=== PATIENT | female | born 1960 | race Caucasian/White ===

== ENCOUNTER → 2018-08-31 | Outpatient (REF) | LOC: ZLAB.WCH 17:21 | DX: Z01.89 Encounter for other specified special examinations (principal) ==

== ENCOUNTER → 2018-11-21 | Outpatient (CLI) | payer OTHER, MEDICARE | LOC: BHSO 09:14 | DX: F33.1 Major depressive disorder, recurrent, moderate (principal) ==

== ENCOUNTER → 2019-01-11 | Outpatient (CLI) | payer MEDICARE | LOC: COL.PUL 01-10 08:00 | DX: J45.20 Mild intermittent asthma, uncomplicated (principal); M06.9 Rheumatoid arthritis, unspecified; G47.30 Sleep apnea, unspecified ==

== ENCOUNTER → 2019-06-15 | Outpatient (CLI) | payer MEDICARE | LOC: MC.RAD 11:15 | DX: Z12.31 Encounter for screening mammogram for malignant neoplasm of breast (principal) ==

== ENCOUNTER 2020-11-05 06:35 | Observation (INO) | payer MEDICARE ==
[~2020-11-05] VITALS: Ht 167.6 cm; Wt 91.6 kg
[2020-11-05] VITALS (29 sets, daily range): BP systolic 79–138; BP diastolic 35–122; PULSE 75–109; TEMP 97.8–98.1
[~2020-11-05 06:35] MED LIST: BALANCE B-501 TA1 PO; BUSPAR DIVIDOSE15 MG PO; COZAAR 50MG50 MG/TAB PO; DESYREL 100MG100 MG PO; ELIQUIS 5MG PO; FLAXSEED OIL1000 MG PO; FLEXERIL 1010 MG/TAB PO; FOLIC ACID 11 MG/TA1 PO; METHOTREXA2.5 MG/TAB PO; PHENERGAN 25 TA25 MG PO; PLAQUENIL 200M200 MG PO; PREDNISONE10 MG PO; PRISTIQ100 MG PO; PROAIR HFA0.09 MG/AC IH; PROTONIX 40MG T40 MG PO; SINGULAIR 110 MG/TAB PO; TYLENOL 8 HR PO; ULTRAM 50MG TAB50 MG PO; VITAMIND3 5000 PO; ZYRTEC 10MG10 MG PO
[2020-11-05] MEDS ORDERED: CLARITIN 1010 MG/TAB PO (07:04)
--- NOTE | 2020-11-05 07:50 | NUR ---
PT BROUGHT TO EU 10 ON CART. PT UNABLE TO TRANSFER SO STAFF TRANSFERED PT TO BED. STATES PAIN IS LIKE SPASMS AND RATES THE PAIN AT 7-9/10. DR VALENTINE CALLED AND WE RECIEVED AND ORDER FOR FENTANYL 50 MCG, THIS WAS GIVEN AT 0829. PT HAD ELEVATED BP 138/122 0837 BP WAS RECHECKED 90/66 WHICH IS IN HER NORMAL RANGE. STATES PAIN IS BETTER AND RATES THE PAIN 4/10.
--- NOTE | 2020-11-05 08:30 | NUR ---
Dr. Schwartz called to report c/o rt upper chest pain and "spams." BP cuff changed to long regular cuff from large red cuff and repositioned on arm.
--- NOTE | 2020-11-05 10:26 | NUR ---
Dr. Schwartz in room to speak with pt.
--- NOTE | 2020-11-05 14:30 | NUR ---
Pain to rt upper chest wall improved, now rates at 2/10. Dressing to bx site remains clean, dry and intact. Pt continues on O2 by OH for comfort, with sats in high 90s.
--- NOTE | 2020-11-05 15:10 | NUR ---
Pt taken to rm 356 by wheelchair with personal belongings. Report was called to JUAN Benton who will take over cares. Pt has been resting comfortably, states that tylenol was very effective at reducing pain. Prior to getting out of bed pain was rated at 2/10. Some increase in pain to rt upper chest with getting out of bed and transferring to wheelchair, up to 6/10. Pt has continued to request O2 for comfort per NC, with sats in high 90s while on O2. Pt plans to discuss assistance with obtaining home O2 with hospiatlist staff during admission.
--- NOTE | 2020-11-05 16:00 | NUR ---
Patient admitted from the [facility] following a lung biopsy. Upon initial assessment, normal S1 and S2 sounds present, radial and pedal pulses +2 bilaterally, bowel sound present in all four quadrants, patient A&O, patient currently SATING 99% on RA. Upon auscultation of the lungs coarse crackles were noted in the RLL. Patient C/O of pain rated a 3/10 on the right side of her body. Med Rec completed, allergies reviewed. Patient orientated to room and policies. Fall precautions placed on patient. Patient denies any further pain, discomfort, or further needs at this time. VSS. Will continue to monitor. Call light in reach.
[2020-11-05 16:43] LABS: MEAN CELL VOLUME 84 fl (80.0-100.0); MEAN CORPUSCULAR HEMOGLOBIN 28 pg (27.0-31.0); MEAN CORPUSCULAR HGB CONC 33 g/dl (33.0-37.0); MEAN PLATELET VOLUME 9.7 fl (7.4-10.4); PLATELET COUNT 138 K/mm3 (130-400); RED BLOOD COUNT 3.98 M/mm3 (4.10-5.30); REDCELL DISTRIBUTION WIDTH-CV 14.6 % (11.5-14.5)
[2020-11-05 16:44] LABS: HEMATOCRIT 33.3 % (37.0-47.0)
[2020-11-05 17:12] LABS: ANISOCYTOSIS 1+; BASOPHIL 1 % (0-2); EOSINOPHIL 1 % (0-4); HYPOCHROMIA 1+; LYMPHOCYTE 32 % (20.0-51.0); METAMYELOCYTE 1 % (0-0); NEUTROPHILS 38 % (42.0-75.2); PLATELET ESTIMATE NORMAL (NORMAL)
[2020-11-05 17:21] LABS: ALBUMIN 3.2 gm/dL (3.5-5.0); BILIRUBIN,TOTAL 0.9 mg/dL (0.0-1.0); CALCIUM 10.2 mg/dL (8.4-10.2); CREATININE, serum 1.22 (0.52-1.25); POTASSIUM 3.6 mmol/L (3.4-5.0); TOTAL PROTEIN 6.4 gm/dL (6.4-8.2)
--- NOTE | 2020-11-05 19:58 | NUR ---
PATIENT RESTED IN BED. ALERT AND ORIETED X4. TYLENOL 1 G GIVEN FOR CHEST PAIN AND HEADACHE. LUNG SOUND CLEAR MARK. ABDOMEN SOFT NT/ND. DENIES NAUSEA/VOMITING AT THIS TIME. CALL LIGHT WITHIN REACH, BED IN LOW POSITION AND LOCKED. BED ALARM ON. ENCOURAGE PATIEN TO CALL FOR ASSISTANT PROFESSOR OF CHEMISTRY. VERBALIZE UNDERSTANDING. WILL CONTINUE TO MONITOR.
[2020-11-06 01:16] VITALS: BP 112/50; PULSE 78; TEMP 97.9
[2020-11-06 04:06] VITALS: BP 124/54; PULSE 78; TEMP 97.7
[2020-11-06 06:44] LABS: HEMOGLOBIN 11.3 g/dl (12.5-16.0); MEAN CELL VOLUME 86 fl (80.0-100.0); MEAN CORPUSCULAR HEMOGLOBIN 28 pg (27.0-31.0); MEAN CORPUSCULAR HGB CONC 33 g/dl (33.0-37.0); MEAN PLATELET VOLUME 10.4 fl (7.4-10.4); RED BLOOD COUNT 4.02 M/mm3 (4.10-5.30); REDCELL DISTRIBUTION WIDTH-CV 14.9 % (11.5-14.5)
[2020-11-06 06:57] LABS: HEMATOCRIT 34.4 % (37.0-47.0)
[2020-11-06 07:06] LABS: CREATININE, serum 1.37 (0.52-1.25); POTASSIUM 3.6 mmol/L (3.4-5.0)
[2020-11-06 07:34] LABS: PLATELET COUNT 130 K/mm3 (130-400)
[2020-11-06 07:59] LABS: BAND 9 % (0-10); BASOPHIL 2 % (0-2); EOSINOPHIL 4 % (0-4); LYMPHOCYTE 28 % (20.0-51.0); METAMYELOCYTE 1 % (0-0); NEUTROPHILS 36 % (42.0-75.2)
[2020-11-06 08:00] LABS: PLATELET ESTIMATE NORMAL (NORMAL)
[2020-11-06 08:01] LABS: HYPOCHROMIA 1+
[2020-11-06 08:41] VITALS: BP 118/50; PULSE 78; TEMP 98.2
[2020-11-06] MEDS ORDERED: OXYGEN NASAL.CANN (09:29)
--- NOTE | 2020-11-06 10:41 | NUR ---
Initial visit; Patient thanked Asbestos Cloth Inspector for looking in on her, offering God's blessings and keeping Dawn in her prayers.
[2020-11-06 11:14] VITALS: BP 115/52; PULSE 74; TEMP 97.6
--- NOTE | 2020-11-06 13:00 | NUR ---
Report received from JUAN Benton. PT in bed resting, denies needs ,will continue to monitor.
--- NOTE | 2020-11-06 15:29 | NUR ---
Discharge teacghing completed at this time. Pt recieved dsihcarge packet, reviewed meds and f/u appointments. INT dc'd, tip intact. Tele monitor removed. Pt received 02 from home O2 [employer]. Resting in bed waiting for sister to come and pick her up. Criteria met, pt will leave with all belongings, will be escorted out via w/c with medical staff.
--- NOTE | 2020-11-06 15:46 | NUR ---
Pattern Generator Operator attended clinical rounds with the team. The patient to tenatively discharge home today, 11/06. The patient may be requiring oxygen. RT reports the patient qualifies for 2L continous oxygen. Following rounds, SW met with the patient to complete intake. The patient lives in [place] with her sister Dana. The patient has a CPAP and now requiring 2L of continuous oxygen. The patient's PCP is Dr. Moore and patient receives medications from [facility] in [place]. The patient does not have advanced directives but was interested in DPOA-HC form. Form provided. The patient is not . She has two adult children in [place]; A daughter is Martha Villa and son, Fernandez Orozco. The patient plans to return home at discharge. SW discussed DME choice for her oxygen. She chose [facility]. Referral faxed and oxygen delivered. The patient reviewed Medicare.gov's list of home health agencies. The first choice is [facility]. [facility] with [facility] declined due to not in-network with the patient's insurance. Shilpi reports that it looks like [facility] is in-network. SW discussed this with the patient and she was agreeable to sending referral to [facility]. Casi with [facility] reports they will have to submit for authorization and it could take up to 14 days. If the patient is approved they can take the patient for home health, custodial services. JOSE discussed this with the patient and she was in agreeance. Discharge orders faxed to [facility]. There are no additional needs at this time. *Discharge disposition: home with home health.
--- NOTE | 2020-11-11 13:06 | NUR ---
[facility] contacted this SW regarding acceptance. The patient's insurance is in-network and they began services for the patient.
== END 2020-11-06 16:20 | disposition home or self-care (01) ==
LOC: COL.RAD 06:35 → MEDICAL 14:29 → COL.RAD 15:15 → MEDICAL 15:16
PROVIDERS: Physician Assistant; ADMIT Internal Medicine
DX: J84.10 Pulmonary fibrosis, unspecified (principal); I26.99 Other pulmonary embolism without acute cor pulmonale; J98.4 Other disorders of lung; I10 Essential (primary) hypertension; E66.9 Obesity, unspecified; G47.33 Obstructive sleep apnea (adult) (pediatric); K21.9 Gastro-esophageal reflux disease without esophagitis; M06.9 Rheumatoid arthritis, unspecified; J45.20 Mild intermittent asthma, uncomplicated; K58.0 Irritable bowel syndrome with diarrhea; F41.0 Panic disorder [episodic paroxysmal anxiety]; F41.9 Anxiety disorder, unspecified; F33.9 Major depressive disorder, recurrent, unspecified; F40.10 Social phobia, unspecified; F43.10 Post-traumatic stress disorder, unspecified; Z79.01 Long term (current) use of anticoagulants; Z99.89 Dependence on other enabling machines and devices; Z79.891 Long term (current) use of opiate analgesic; Z79.899 Other long term (current) drug therapy; Z80.0 Family history of malignant neoplasm of digestive organs; Z80.1 Family history of malignant neoplasm of trachea, bronchus and lung; Z80.3 Family history of malignant neoplasm of breast; Z80.49 Family history of malignant neoplasm of other genital organs; Z80.8 Family history of malignant neoplasm of other organs or systems
CPT/HCPCS: G0378; J3010

== ENCOUNTER → 2020-11-27 | Outpatient (CLI) | payer MEDICARE ==
[~2020-11-27] MED LIST changes: +CLARITIN 1010 MG/TAB PO; +OXYGEN NASAL.CANN
== END ==
LOC: COL.PUL 11:21
DX: B39.2 Pulmonary histoplasmosis capsulati, unspecified (principal); G47.33 Obstructive sleep apnea (adult) (pediatric); M06.9 Rheumatoid arthritis, unspecified; J45.909 Unspecified asthma, uncomplicated

== ENCOUNTER → 2020-12-18 | Outpatient (CLI) | payer MEDICARE | LOC: COL.CARD 11:33 | DX: B39.2 Pulmonary histoplasmosis capsulati, unspecified (principal); R00.0 Tachycardia, unspecified; R06.02 Shortness of breath ==

== ENCOUNTER → 2021-01-08 | Outpatient (CLI) | payer MEDICARE | LOC: COL.PUL 12:28 | DX: B39.2 Pulmonary histoplasmosis capsulati, unspecified (principal); Z77.22 Contact with and (suspected) exposure to environmental tobacco smoke (acute) (chronic) | CPT/HCPCS: J7674 ==

== ENCOUNTER → 2021-01-13 | Outpatient (CLI) | payer MEDICARE ==
[2021-01-13 10:41] LABS: CALCIUM 10.1 mg/dL (8.4-10.2); CREATININE, serum 1.61 (0.52-1.25); POTASSIUM 4.2 mmol/L (3.4-5.0)
== END ==
LOC: COL.RAD 09:44
PROVIDERS: Internal Medicine Pulmonary Disease
DX: B39.2 Pulmonary histoplasmosis capsulati, unspecified (principal); R06.02 Shortness of breath; R59.0 Localized enlarged lymph nodes; R91.1 Solitary pulmonary nodule

== ENCOUNTER → 2021-04-15 | Outpatient (CLI) | payer MEDICARE ==
[2021-04-15 10:47] LABS: CREATININE, serum 1.14 mg/dL (0.57-1.11); POTASSIUM 4.1 mmol/L (3.5-4.5)
--- NOTE | 2021-04-15 11:36 | NUR ---
PT BROUGHT OVER BY STAFF AFTER PROCEDURE. PT HAS HAD BENADRYL 50 MG, ATIVAN 0.5MG AND PREDNISONE 50X3 WITH THE LAST TIME FOR ALL AT 0900. PT HAD CT CHEST WITH CONTRAST. VS: 1128: 173/139, 85, 99% ON O2 @2L/NC. PT STATES HER THROAT FEELS THICK. 1139 PT STATES SHE CAN BREATH EASIER.
--- NOTE | 2021-04-15 11:48 | NUR ---
PT IS DOING BETTER. THROAT CONTINUES TO RESOLVE. VSS: 125/79, 84, 97 % ON O2@2/NC, 20. WILL CONTINUES TO MONITOR.
== END ==
LOC: COL.RAD 01-29 11:30 → COL.LAB 09:58 → COL.RAD 10:00
PROVIDERS: Internal Medicine Pulmonary Disease
DX: B39.2 Pulmonary histoplasmosis capsulati, unspecified (principal); R59.0 Localized enlarged lymph nodes
CPT/HCPCS: Q9967

== ENCOUNTER → 2023-11-25 | Outpatient (CLI) | payer MEDICARE | LOC: COL.VAS 12:15 | DX: I34.0 Nonrheumatic mitral (valve) insufficiency (principal) ==